=== PATIENT | male | born 1995 | race Caucasian/White ===

== ENCOUNTER 2016-08-17 23:18 | Emergency (ER) | payer OTHER ==
[~2016-08-17] VITALS: Ht 177.8 cm; Wt 71.0 kg
[~2016-08-17 23:18] MED LIST: HYDR-3498 PO; IBUP-1542 PO
[2016-08-17 23:27] VITALS: Ht 177.8 cm; Wt 71.0 kg
--- NOTE | 2016-08-18 01:43 | RADRPT ---
PROCEDURE: XR Elbow. CLINICAL INDICATION: Right elbow trauma. TECHNIQUE: AP, lateral and oblique views of the elbow performed. COMPARISON: None. FINDINGS: Calcified fragments along the lateral condyle most of which are likely chronic in nature as they are well corticated. There is prominent soft tissue density in this region with several punctate faint calcifications which may reflect subtle avulsion fracture . The bones are otherwise normal in estate tax examiner alization without cortical destruction. No elevation of the anterior or posterior fat pad to sugges t joint effusion or occult fracture. No soft tissue abnormality. The distal humerus, proximal radi us and ulna are unremarkable. IMPRESSION: Soft tissue prominence and calcifications adjacent to the lateral epicondyle which may reflect acute and chronic injury as described above. MRI may be considered for further evaluation of the lateral condyle. No joint effusion or radial head fracture. RPTAT:AAJJ Physician David Date Time Electronically viewed and signed by Physician David on 08/18/2016 01:42 MAKENNA/
--- NOTE | 2016-08-18 02:07 | ERD ---
ER Documentation Chief Complaint Date/Time DATE: 08/18/16 TIME: 02:06 Chief Complaint right elbow pain sustained while skate boarding 10 minutes ago HPI The patient is a 21-year-old male here with some mild right elbow pain after he fell off his skateboard at approximately 10:30 this evening and hit his elbow on the pavement. He denies numbness or tingling, loss of strength, or any radiating pain. Reports hurting this same elbow in middle school by hitting it on something. He did not take any medication prior to arrival for pain. ROS All systems reviewed and are negative except as per history of present illness. Medications Home Meds Active Scripts Ibuprofen* (Motrin*) 600 Mg Tab, 600 MG PO Q8, #30 TAB Prov:LICHA SANDOVAL, CRISTIANO 08/18/16 Ibuprofen* (Motrin*) 600 Mg Tab, 600 MG PO Q6, #30 TAB Prov:URI AGUIRRE PA-C 03/04/16 Hydrocodone Bit-Acetaminophen* ([place]*) 5-325 Mg Tab, 1 TAB PO Q6 Y for PAIN, # 15 TAB Prov:URI AGUIRRE PA-C 03/04/16 Allergies Allergies: Coded Allergies: No Known Allergy (Unverified , 01/24/13) PMhx/Soc Medical and Surgical Hx: pt denies Surgical Hx History of Surgery: No Anesthesia Reaction: No Hx Neurological Disorder: No Hx Respiratory Disorders: No Hx Cardiac Disorders: No Hx Psychiatric Problems: No Hx Miscellaneous Medical Probl: Yes (Hypothyroidism) Hx Alcohol Use: No Hx Substance Use: No Hx Tobacco Use: No Physical Exam Vitals Vital Signs Date Time Temp Pulse Resp B/P Pulse Ox O2 Delivery O2 Flow Rate FiO2 08/17/16 23:27 98.3 73 20 124/74 98 Physical Exam INITIAL VITAL SIGNS: Reviewed by me GENERAL: Alert. Well developed and well nourished. No acute distress. HEAD: Head is normocephalic. Atraumatic. No tenderness to palpation. EYES: EOMI. No scleral icterus. No conjunctival injection. ENT: External ears, nose, and mouth normal. Nasal passages patent. Throat is clear and without erythema, exudates, or drainage. Moist mucous membranes. NECK: Supple. Full range of motion. Trachea midline. RESPIRATORY: No tachypnea. Clear to auscultation bilaterally. No wheezing, rales , or rhonchi. CV: Regular rate and rhythm. No murmurs, rubs, or gallops ABDOMEN: Soft, non-distended, non-tender. No guarding. No rebound. No masses. Bowel sounds normal in all quadrants. BACK: No CVA tenderness. Full ROM. EXTREMITIES: + Soft tissue swelling on the lateral aspect of the right elbow, approximately 1.5 cm x 1.5 cm. Right upper extremity: sensation intact to light touch, strength 5/5, full range of motion, however is painful at the elbow. Patient able to pronate and supinate. Strong hand grasp. Radial pulses +2. No wrist or shoulder tenderness or pain with palpation. No clubbing or cyanosis. SKIN: Warm and dry. No diaphoresis. No obvious rashes or lesions. NEUROLOGIC: Alert and oriented x 3. Appropriate. Face is symmetric. Speech is normal. Moves all extremities equally. Results 24 hrs PROCEDURE: XR Elbow. CLINICAL INDICATION: Right elbow trauma. TECHNIQUE: AP, lateral and oblique views of the elbow performed. COMPARISON: None. FINDINGS: Calcified fragments along the lateral condyle most of which are likely chronic in nature as they are well corticated. There is prominent soft tissue density in this region with several punctate faint calcifications which may reflect subtle avulsion fracture . The bones are otherwise normal in mineralization without cortical destruction. No elevation of the anterior or posterior fat pad to suggest joint effusion or occult fracture. No soft tissue abnormality. The distal humerus, proximal radius and ulna are unremarkable. IMPRESSION: Soft tissue prominence and calcifications adjacent to the lateral epicondyle which may reflect acute and chronic injury as described above. MRI may be considered for further evaluation of the lateral condyle. No joint effusion or radial head fracture. RPTAT:AAJJ Physician David Date Time Electronically viewed and signed by Physician David on 08/18/2016 01:42 Procedures/MDM Nursing Notes Reviewed Previous Medical Records requested via [employer]. EMERGENCY DEPARTMENT COURSE / MEDICAL DECISION MAKING: The patient comes to the ED secondary to right elbow pain and swelling status post fall off his skateboard at approximately 10:30 PM today. Differential diagnosis upon initial evaluation includes but is not limited to: Fracture, dislocation, contusion, and others. The patient was offered pain medication, however he declined stating that he was not having much pain. He states that he usually smokes marijuana for pain, and stated that he smoked marijuana prior to arrival today. The patient was counseled on the risks of smoking marijuana, and advised to quit. Right elbow x-ray as per radiology report: FINDINGS: Calcified fragments along the lateral condyle most of which are likely chronic in nature as they are well corticated. There is prominent soft tissue density in this region with several punctate faint calcifications which may reflect subtle avulsion fracture . The bones are otherwise normal in mineralization without cortical destruction. No elevation of the anterior or posterior fat pad to suggest joint effusion or occult fracture. No soft tissue abnormality. The distal humerus, proximal radius and ulna are unremarkable. IMPRESSION: Soft tissue prominence and calcifications adjacent to the lateral epicondyle which may reflect acute and chronic injury as described above. MRI may be considered for further evaluation of the lateral condyle. No joint effusion or radial head fracture. Final impression: 1. Right elbow pain 2. Soft tissue swelling, right elbow The case was discussed with supervising physician Dr. Gilliam. Per Dr. Gilliam, patient placed in a long-arm splint and a sling. He was deemed a good candidate for outpatient management and follow-up with orthopedics. Given the patient's history of present illness, x-ray report, and physical exam , I have low suspicion for dislocation. An acute fracture cannot be entirely ruled out, as such the patient will be placed in a long-arm splint with a sling and instructed to follow-up with orthopedics in the next few days. Based on patient's history of present illness and physical examination the decision was made to discharge. There is no evidence of life threatening injuries or illnesses at this time. On re-examination, patient resting in no distress, stable vital signs, reports feeling safe for discharge with outpatient follow up with PMD in 1-2 days so that he may get a referral to orthopedics promptly. Patient given return precautions. He verbalized understanding and agreed to return precautions. He stated that he will keep his splint and sling in place until he is able to see an [facility] specialist. He stated that he will return here for any worsening symptoms, new symptoms, or any concerns. He was provided a copy of his x-ray report. Prescription Ibuprofen Departure Diagnosis: Primary Impression: Elbow pain Laterality: right Qualified Code: M25.521 - Right elbow pain Additional Impression: Localized soft tissue swelling Condition: Stable LICHA SANDOVAL NP Aug 18, 2016 02:07
[2016-08-18] MEDS ORDERED: IBUP-1542 PO (02:16)
== END 2016-08-18 02:29 | disposition home or self-care (01) ==
LOC: FTE 23:18
DX: S59.901A Unspecified injury of right elbow, initial encounter (principal); E03.9 Hypothyroidism, unspecified; V00.131A Fall from skateboard, initial encounter; Y92.9 Unspecified place or not applicable
CPT/HCPCS: 29105; 73080; Z7502

== ENCOUNTER 2018-04-12 13:16 | Inpatient (IN) | END 2018-04-13 15:50 | disposition home or self-care (01) | DRG 644 ==